=== PATIENT | male | born 1955 | race Caucasian/White ===

== ENCOUNTER → 2017-08-27 | Outpatient (CLI) | payer BC | LOC: ULTRA 09:34 | DX: M79.632 Pain in left forearm (principal); M79.89 Other specified soft tissue disorders ==

== ENCOUNTER 2018-03-03 19:45 | Inpatient (IN) | payer BC ==
[~2018-03-03] VITALS: Ht 175.3 cm; Wt 102.1 kg
--- NOTE | ~2018-03-03 | EKG ---
[address] [place] [address] ELECTROCARDIOGRAM REPORT Name: ANTONIO REID Room #: 461-P ADM IN M.R.#: [id number] Admission: 03/03/18 Attend Phys: Edilberto Rodney MD Discharge: Date of : 53 Report #: [id number] THIS REPORT FOR: //name// [facility] [place], [place] ED Test Date: 2018-03-03 Test Time: 20:47:25 Pat Name: ANTONIO REID Department: Room: 461 Gender: M Pre Algebra Teacher: nolan : 1955 Requested By: Simone Ace Order Number: [id number] MD: Frederick Abdul Measurements Intervals Scheller Rate: 70 P: 5 TX: 171 QRS: -3 QRSD: 88 T: 13 QT: 398 QTc: 430 Interpretive Statements Sinus rhythm Normal tracing No previous ECG available for comparison Electronically Signed On 03-04-2018 8:35:03 INSTALLATION TECHNICIAN by Frederick Abdul [email or web address] <ELECTRONICALLY SIGNED> By: Frederick Abdul MD, [facility] 03/04/18 0835 [id number] 46 Frederick Abdul MD, FACC /EPI
[2018-03-03 19:49] VITALS: BP 129/88
[2018-03-03 20:42] LABS: ABSOLUTE NEUTROPHILS 7.2 thou/uL (1.4-8.2); BASOPHILS 0.3 % (0.0-2.0); EOSINOPHILS 6.1 % (0.0-3.0); HEMATOCRIT 37.5 % (42.0-52.0); HEMOGLOBIN 12.6 gm/dL (14.0-18.0); LYMPHOCYTES 4.4 % (24.0-44.0); MCH 28.4 pg (26.0-34.0); MCHC 33.8 g/dL (28.0-37.0); MCV 84.1 fL (80.0-100.0); MONOCYTES 4.2 % (1.0-8.0); PLATELET COUNT 209 thou/uL (150-400); RBC 4.45 mil/uL (4.50-6.00); RDW 14.7 % (10.5-14.5); WBC 8.5 thou/uL (4.0-11.0)
[2018-03-03] MEDS ORDERED: LEXAPRO 10 MG T10 M2 PO (20:50)
[2018-03-03] MEDS ORDERED: SIMVASTATIN40 MG PO (20:50)
[2018-03-03 20:51] LABS: ANION GAP 10 mmol/L (7-16); BUN 17 mg/dL (7-18); CALCIUM 8.9 mg/dL (8.5-10.1); CHLORIDE 101 mmol/L (98-107); CO2 24 mmol/L (21-32); GLUCOSE 130 mg/dL (74-106); POTASSIUM 4.4 mmol/L (3.5-5.1); SODIUM 135 mmol/L (136-145)
[2018-03-03] MEDS ORDERED: INDERAL80 MG PO (20:51)
[2018-03-03] MEDS ORDERED: VASOTEC20 MG PO (20:51)
[2018-03-03] MEDS ORDERED: ANDROGEL75 GM TOP (20:53)
[2018-03-03] MEDS ORDERED: ALLOPURINOL 10100 M1 PO (20:53)
[2018-03-03] MEDS ORDERED: ASPIR 8181 MG PO (20:53)
[2018-03-03] MEDS ORDERED: CLARITIN10 M2 PO (20:54)
[2018-03-03 21:00] LABS: ALBUMIN 3.6 g/dL (3.4-5.0); APTT 24.7 Seconds (24.5-32.8); MAGNESIUM 1.6 mg/dL (1.8-2.4); PROTIME 10.2 Seconds (9.3-11.4); SGOT 25 U/L (15-37); SGPT 34 U/L (30-65); TOTAL BILIRUBIN 0.9 mg/dL (<0.1-1.0); TOTAL PROTEIN 6.9 g/dL (6.4-8.2); TROPONIN-I <0.06 ng/mL (<0.06)
[2018-03-03 21:07] LABS: D-DIMER 9.83 ug/mLFEU (0.19-0.50)
[2018-03-03 23:00] VITALS: BP 129/88
[2018-03-04 00:03] VITALS: BP 120/66
[2018-03-04 00:34] VITALS: BP 124/71
[2018-03-04] MEDS ORDERED: GABAPENTIN 100100 MG PO (00:51)
[2018-03-04 01:55] VITALS: BP 127/76
[2018-03-04 08:16] VITALS: BP 115/75
[2018-03-04] MEDS ORDERED: LEVAQUIN 500 M500 M2 PO (14:02)
[2018-03-04 14:39] VITALS: BP 115/75; BP 135/84
== END 2018-03-04 17:27 | disposition home or self-care (01) | DRG 195 ==
LOC: ER 19:45 → EROBS 22:29 → 4W 22:29
PROVIDERS: Emergency Medicine
DX: J18.9 Pneumonia, unspecified organism (principal); Z86.711 Personal history of pulmonary embolism; Z88.6 Allergy status to analgesic agent; Z79.899 Other long term (current) drug therapy